=== PATIENT | male | born 1970 | race African-American/Black ===

== ENCOUNTER 2020-09-13 12:10 | Outpatient (REF) | payer OTHER, SELFPAY ==
[2020-09-13 15:16] LABS: Anion Gap 13 (12-20); Blood Urea Nitrogen 24 mg/dL (9-16); Calcium 9.4 mg/dL (8.4-10.2); Carbon Dioxide 28 mmol/L (22-29); Chloride 105 mmol/L (96-108); Estimated Glomerular Filt Rate 46; Glucose Random 76 mg/dL (60-115); Potassium 5.1 mmol/l (3.3-5.1); Sodium 141 mmol/L (135-145)
== END 2020-09-13 12:11 | disposition home or self-care (01) ==
LOC: HO.LAB 12:10
PROVIDERS: PCP Internal Medicine; Referring Provider Internal Medicine; Visit Provider Internal Medicine Cardiovascular Disease
DX: I13.0 Hypertensive heart and chronic kidney disease with heart failure and stage 1 through stage 4 chronic kidney disease, or unspecified chronic kidney disease (principal); N18.9 Chronic kidney disease, unspecified; I50.9 Heart failure, unspecified
CPT/HCPCS: 80048; 93005; 99212

== ENCOUNTER → 2020-10-18 08:51 | Outpatient (REF) | payer OTHER, SELFPAY ==
--- NOTE | 2020-10-18 08:54 | CA_ITS ---
Transthoracic Echocardiogram Patient (Last, First, Middle): Kam Yoon, Gender: Male Date of : 1970 Age: 49 Procedure Date: 10/18/2020 Procedure Type: Transthoracic Echocardiogram Location: OP Height: 167.64 cm Weight: 145.15 kg BSA: 2.44 m2 Heart Rate: bpm BP: 142 / 88 mmHg Program Admin: MICKEY Crook MD: Rosendo Rogers MD Symptoms: I10 - Essential (primary) hypertension Study Quality: Good ECG Rhythm: Sinus Conclusions: - The left ventricular systolic function is normal. The visually estimated ejection fraction is between 55-60%. - Evidence suggests grade I (mild) diastolic dysfunction. - No obvious valvular pathology seen on this study. Findings Procedure Information Contrast agent, definity, is being given per protocol without apparent complications. Left Ventricle Normal left ventricular cavity size. There is mildly increased left ventricular wall thickness. The left ventricular systolic function is normal. The visually estimated ejection fraction is between 55-60%. There is no evidence of regional wall motion abnormalities. E/E prime ratio is between 8 and 15 consistent with indeterminate filling pressures. Evidence suggests grade I (mild) diastolic dysfunction. Right Ventricle Normal right ventricular cavity size and systolic function. Atria Both atria are normal in size. Aortic Valve There is a normal trileaflet aortic valve. There is no aortic valve stenosis. There is no aortic valve regurgitation. Mitral Valve The mitral valve appears normal. There is trace mitral valve regurgitation. There is no mitral valve stenosis. Pulmonic Valve The pulmonic valve was not well visualized. Tricuspid Valve Normal tricuspid valve structure. There is trace tricuspid valve regurgitation. The pulmonary artery systolic pressure is normal. Great Vessels The aortic annulus, sinuses of valsalva, and asc aorta are normal in size. Venous The inferior vena cava is normal in size and collapses greater than 50% with inspiration. Pericardium/Pleural There is a trivial pericardial effusion. Prior Study Comparison No significant change compared to prior study dated: 04/24/2018. Recommendations, Care & Conclusions No obvious valvular pathology seen on this study. Measurements 2D Linear Measurements RVIDd: 3.35 RVIDd Index: 1.37 IVSd: 1.10 0.6-0.9/0.6-1.0 cm LVIDd: 5.59 3.9-5.3/4.2-5.9 cm LVIDd Index: 2.29 2.4-3.2/2.2-3.1 cm/m2 LVIDs: 3.35 2.0-3.6 cm LVPWd: 1.45 0.7-1.1 cm Ao Root: 3.10 2.1-3.5 cm LA Diam: 4.50 2.7-3.8/3.0-4.0 cm LAIDs Index: 1.84 1.5-2.3 cm/m2 LV Mass: 379.26 67-162/88-224 g LV Mass Index: 155.44 43-95/49-115 g/m2 LVOT Diam: 2.30 3.0+(-)1.3 cm 2D Systolic Function EF 4C: 44.90 >55% EF 2C: 67.00 >55% EF BiP: 56.40 >55% Mitral Valve MV Pk E: 0.73 MV PK A: 0.67 MV Decel Time: 220.00 E/A: 1.10 E'Lateral: 6.74 E'Medial: 5.87 E/E' Med: 12.40 E/E' Lat: 10.80 Aortic Valve AoV Pk Kana: 1.81 AoV Mn Kana: 1.32 AoV VTI: 0.40 AoV Pk Grad: 13.00 Aov Mn Grad: 8.00 KEEGAN Cont.VTI: 2.51 LVOT LVOT Pk Kana: 1.28 LVOT Mn Kana: 0.71 LVOT VTI: 0.24 LVOT Pk Grad: 7.00 LVOT Mn Grad: 3.00 LVOT Diam: 2.30 LVOT Area: 4.15 Diastolic Function MV Pk E: 0.73 MV Pk A: 0.67 E/A: 1.10 E'Medial: 5.87 E/E' Med: 12.40 E' Laterial: 6.74 E/E' Lat: 10.80 Tricuspid Valve RA Press: 3.00 Great Vessels Aorta Ao Root-2D: 3.10 2.0-3.7 cm Ao Asc: 3.80 2.1-3.4 cm Ao Arch: 3.20 Updated in Other Vendor System with Status of Final Ran Horton MD electronically signed on 10/18/2020 12:09:26 PM with status of Final
== END ==
LOC: HO.CARD 08:51
PROVIDERS: PCP Internal Medicine; Visit Provider Internal Medicine Cardiovascular Disease
DX: I11.9 Hypertensive heart disease without heart failure (principal)
CPT/HCPCS: 93306; Q9957